=== PATIENT | male | born 1995 | race Caucasian/White ===

== ENCOUNTER 2017-09-02 22:02 | Emergency (ER) | payer OTHER ==
[2017-09-02 22:06] VITALS: BP 131/67; PULSE 65; RESP 16; TEMP 97.5; O2SAT 96
--- NOTE | 2017-09-02 22:09 | EDPHY ---
H & P Stated Complaint: L shoulder poss dislocation HPI/ROS: HPI CHIEF COMPLAINT: Left shoulder pain HISTORY OF PRESENT ILLNESS: Patient is a 22-year-old male, otherwise healthy no significant medical history presents emergency room left shoulder pain. Patient was skiing earlier this morning or close to 12 hr ago any fell on his left shoulder directly on the left lateral aspect of it. Since then he has had ongoing pain. He thinks he may have dislocated shoulder. Upon arrival in the emergency room he is neurovascular intact distally. Good cap refill. Full range of motion left shoulder but has pain to left lateral shoulder. No obvious signs of deformity or dislocation on exam. Past Medical History: Denies medical history Past Surgical History: Denies surgical history Social History: Denies daily use drugs alcohol tobacco products. [employer] student. Family History: Noncontributory ROS REVIEW OF SYSTEMS: A comprehensive 10 point review of systems is otherwise negative aside from elements mentioned in the history of present illness. Exam Constitutional appears well nontoxic no acute distress triage nursing summary reviewed, vital signs reviewed, awake/alert. Eyes normal conjunctivae and sclera, EOMI, PERRLA. HENT normal inspection, atraumatic, moist mucus membranes, no epistaxis, neck supple/ no meningismus, no raccoon eyes. Respiratory clear to auscultation bilaterally, normal breath sounds, no respiratory distress, no wheezing. Cardiovascular rate normal, regular rhythm, no murmur, no edema, distal pulses normal. Gastrointestinal soft, non-tender, no rebound, no guarding, normal bowel sounds, no distension, no pulsatile mass. Genitourinary no CVA tenderness. Musculoskeletal left upper extremity: Neurovascular intact. Good distal pulse. Good cap refill. Full range of motion. Axillary nerve intact. Tender palpation over the left lateral posterior shoulder. Appears to be in normal alignment. no midline vertebral tenderness, full range of motion, no calf swelling, no tenderness of extremities, no meningismus, good pulses, neurovascularly intact. Skin pink, warm, & dry, no rash, skin atraumatic. Neurologic awake, alert and oriented x 3, AAOx3, moves all 4 extremities equally, motor intact, sensory intact, CN II-XII intact, normal cerebellar, normal vision, normal speech. Psychiatric normal mood/affect. Heme/Lymph/Immune no lymphadenopathy. Differential Diagnosis: Includes but is not limited to in a particular order shoulder dislocation, AC joint separation, fracture, rotator cuff injury, contusion Medical Decision Making: Plan for this patient lying, ice pack, anti-inflammatory pain medicine, x-ray. Will most likely refer to Orthopedics Re-evaluation: 2244: X-ray left shoulder reviewed. Negative for acute fracture malalignment. Recommend follow up with Orthopedics. Ice pack sling. Anti-inflammatory pain medicine. Return if worsening symptoms questions or concerns. Source: Patient - Personal History Current Tetanus/Diphtheria Vaccine: Yes - Medical/Surgical History Hx Asthma: No Hx Chronic Respiratory Disease: No Hx Diabetes: No Hx Cardiac Disease: No Hx Renal Disease: No Hx Cirrhosis: No Hx Alcoholism: No Hx HIV/AIDS: No Hx Splenectomy or Spleen Trauma: No Other PMH: previous concussion - Social History Smoking Status: Never smoked Constitutional: Initial Vital Signs Temperature (C) 36.4 C 09/02/17 22:03 Heart Rate 65 09/02/17 22:03 Respiratory Rate 16 09/02/17 22:03 Blood Pressure 131/67 H 09/02/17 22:03 O2 Sat (%) 96 09/02/17 22:03 O2 Delivery Mode Room Air Allergies/Adverse Reactions: No Known Allergies Allergy (Unverified 09/02/17 22:06) Home Medications: Medication Instructions Recorded ACCUTANE 09/02/17 Departure - Departure Disposition: Home, Routine, Self-Care Clinical Impression: Left shoulder strain Qualifiers: Encounter type: initial encounter Qualified Code(s): S46.912A - Strain of unspecified muscle, fascia and tendon at shoulder and upper arm level, left arm , initial encounter Condition: Good Instructions: Arthralgia (ED), Shoulder Pain (ED) Additional Instructions: 1. Stay in your sling for comfort. 2. Ice your shoulder. 3. Anti-inflammatory pain medicine for pain control. 4. follow up with Orthopedics. Referrals: JOSE RAMON VASQUEZ [Other] - As per Instructions Yordan Paz MD [Medical Doctor] - As per Instructions
== END 2017-09-02 23:20 | disposition home or self-care (01) ==
DX: S46.912A Strain of unspecified muscle, fascia and tendon at shoulder and upper arm level, left arm, initial encounter (principal); V00.321A Fall from snow-skis, initial encounter; Y93.23 Activity, snow (alpine) (downhill) skiing, snowboarding, sledding, tobogganing and snow tubing